=== PATIENT | female | born 1980 | race Caucasian/White ===

== ENCOUNTER → 2016-06-29 | Outpatient (CLI) | payer MEDICAID ==
[~2016-06-29] MED LIST: AMOXICILLIN/CLA1 TA1 PO; BACTRIM DS 8001 TA1 PO; BENZONATATE100 MG PO; DARVOCET-N 1001 EACH PO; DOXYCYCLINE MO100 MG PO; ETODOLAC400 MG PO; FLEXERIL10 MG PO; GABAPENTIN300 M1 PO; HYDROCODONE-APA1 TA1 PO; HYDROCODONE1 TABLET PO; IBUPROFEN400 MG PO; KEFLEX 500MG.500 MG PO; LORTAB 5/500 501 TAB PO; MEDROL 4MG. DOSE4 MG PO; NAPROSYN 500MG500 MG PO; NAPROXEN SODIU500 MG PO; NOMEDS *; NOMEDS XX; PERCOCET 10 MG1 EACH PO; TYLENOL W/CODEI1 TA2 PO; ULTRAM50 MG PO; VOLTAREN75 MG PO; ZANTAC 150150 MG PO
--- NOTE | 2016-06-29 14:40 | RADIOLOGY REPORT PS360 ---
CHEST(2 VIEWS-NOT PORTABLE) HISTORY: PNEUMONIA ORDERING PHYSICIAN: Miladis Almonte APRN PATIENT AGE: 35 years COMPARISON: None available FINDINGS: The cardiomediastinal silhouette and pulmonary vascularity are within normal limits. The lungs are clear without infiltrates, suspicious nodules, or pleural effusions. No acute bony abnormalities. IMPRESSION: Negative chest, no acute finding
== END ==
LOC: RAD 14:17
DX: J18.9 Pneumonia, unspecified organism (principal)

== ENCOUNTER → 2016-07-26 | Outpatient (CLI) | payer MEDICAID ==
--- NOTE | 2016-07-26 16:07 | RADIOLOGY REPORT PS360 ---
US BREAST-LT COMPLETE W/AXILLA COMPARISON: Mammogram and ultrasound of 07/13/2016 INDICATION: Left breast nodule ORDERING PHYSICIAN: Gerardo Beck MD PATIENT AGE: 35 years TECHNIQUE: Left breast ultrasound FINDINGS: Repeat left breast ultrasound now demonstrates a 4 x 2 mm cyst in the 4:00 region of the left breast which may correspond to the mammographic abnormality. No suspicious nodules evident. IMPRESSION: Mammographic abnormality may correspond to a 4 mm cyst BI-RADS CATEGORY: 3_Probably Benign-Short Term F/U RECOMMENDED FOLLOWUP: 6 month mammographic and sonographic follow-up of the left breast (A letter has been sent to the patient regarding results of the study.)
== END ==
LOC: RAD 08:49
DX: N63 Unspecified lump in breast (principal)

== ENCOUNTER → 2017-01-31 | Outpatient (CLI) | payer MEDICAID ==
--- NOTE | 2017-02-01 15:19 | RADIOLOGY REPORT PS360 ---
DIG MAMM-DX UNI LT W/AVS W/CAD, US BREAST-LT COMPLETE W/AXILLA COMPARISON: 317, 06/30/2016, left breast ultrasound of 07/26/2016 INDICATION: Follow-up abnormal mammogram and ultrasound ORDERING PHYSICIAN: Gerardo Beck MD PATIENT AGE: 36 years TECHNIQUE: Standard images obtained with spot compression views and rolled views along with left breast ultrasound FINDINGS: 5 mm well-circumscribed nodule noted in the outer aspect of the left breast. This does not appear significantly changed. There is average fibroglandular tissue. No new nodules are evident. There is some asymmetric density noted lateral to the nodule that was previously described but is felt to represent fibroglandular tissue. Left breast ultrasound: 4 mm cyst is once again noted in the 4:00 region. No other significant anomalies are evident. Specifically, no suspicious nodules lateral to the cyst that would correspond to the mammographic asymmetry. IMPRESSION: No evidence of malignancy. No significant change BI-RADS CATEGORY: 2_Benign RECOMMENDED FOLLOWUP: Screening mammogram June 2017 (A letter has been sent to the patient regarding results of the study.)
== END ==
LOC: RAD 01-30 13:00
DX: R92.8 Other abnormal and inconclusive findings on diagnostic imaging of breast (principal)
CPT/HCPCS: G0206-LT